=== PATIENT | female | born 1995 | race African-American/Black ===

== ENCOUNTER 2020-06-04 13:16 | Outpatient (CLI) | payer OTHER, SELFPAY ==
[~2020-06-04] VITALS: Ht 175.3 cm; Wt 110.0 kg
[2020-06-04 13:36] VITALS: BP 139/77
[2020-06-04] MEDS ORDERED: PRENTAB9 PO (13:55)
[2020-06-04] MEDS ORDERED: BETAMETHASONE SOLUSPAN 6MG/ML 5ML VIAL (J0702 PER 3MG) IM SCH (15:00)
--- NOTE | 2020-06-04 16:47 | REP ---
INDICATION: Complete placental previa COMPARISON: None. TECHNIQUE: Transabdominal obstetrical ultrasound with color Doppler evaluation. FINDINGS: Examination demonstrates a single live intrauterine in breech presentation. motion is identified by technologist. Placenta is noted posterior/right lateral and grade 3 with evidence for complete previa. Placenta includes 2 cystic areas measuring 4.1 x 1.7 x 3.1 cm and 5.0 x 1.0 x 5.0 cm which may represent placental lakes. Amniotic fluid volume is normal. BRAXTON measures 16.5 (8.3-24.5) Cervix measures 4.3 cm in length without funneling. Gestational age by LMP 33 weeks 0 days with LUI 07/23/2020. Gestational age by current measurements 31 weeks 3 days with LUI 08/03/2020. FHR equals 153 beats per minute. Estimated weight 1924 grams (44thpercentile). Biophysical profile score: 8/8 Anatomical assessment demonstrates normal structures including cranium, choroid plexus, cerebellum, facial features, facial profile, diaphragm, stomach, kidneys/bladder, spine and three-vessel cord. IMPRESSION: 1. Grade 3 placenta with complete previa and two anechoic collections suggesting venous lakes although placental hemorrhage cannot be excluded. 2. BRAXTON is normal. Biophysical profile score is 8/8. Estimated weight is normal. 3. Limited anatomical assessment without abnormality. <Electronically signed by Obed Loja > 06/04/20 [id number]
[2020-06-04 17:06] VITALS: BP 127/66
--- NOTE | 2020-06-04 17:26 | IPNPDOC ---
Text Note Date of Service The patient was seen on 06/04/20. NOTE 25 yo AT 33 WEEKS SEEN FOR [facility] NOTED PLACENTA PREVIA COMPLETE. HAPPENED YESTERDAY NO FURTHER BLEEDING TODAY . GOOD MOVEMENT. DENIES INTERCOURSE. PAST HISTORY: 2011 TERM FEMALE 3.8 KG [place] 2018 TERM MALE 3.8 KG [facility] LMP 10/17/2019 EDC 07/23 2020 EDC BY US 01/02/2021 11 WEEKS. ASSESSMENT: NO VAGINAL BLEEDING OR DISCHARGE SEEN NO CRAMPS . GOOD MOVEMENT. NST REACTIVE CATEGORY 1 STRIP NO DECELERATIONS ACCELERATIONS NOTED MODERATE VARIABILITY BASELINE NORMAL . ULTRASOUND PLACENTA POSTERIOR GRADE 3 COMPLETE PREVIA. 2 CYSTIC AREAS 4.1X1.7X3.1 AND 5.0X1.0X5.0 . BRAXTON 16.5 CM. CERVIX 4.3 CM NO FUNNELING. EGA 33 .0 WEEKS FHR 153 BPM. WEIGHT 1924 GRAMS . BPP 8/8. PLAN BETAMETHASONE X 2 DOSES BOOK PRIMARY CS AT 36-37 WEEKS PRECAUTIONS GIVEN. DISCHARGED UNDELIVERED. ACCOUNTANT BOOKKEEPER DECLINED REVIEWED OPTIONS AND RESULTS WITH AND PATIENT IN [place]. TOTAL TIME EVALUATION EXAMINATION 2 HOURS VS,Rigoberto, I+O VS, Jodie, I+O Vital Signs Date Time Temp Pulse Resp B/P (MAP) Pulse Ox O2 Delivery O2 Flow Rate FiO2 06/04/20 13:36 97.2 91 18 139/77 (97) Room Air Merlin Whitaker MD Jun 04, 2020 17:25
[2020-06-04] MEDS ORDERED: [UNRECOGNIZED DRUG - CODE] IM (17:28)
== END 2020-06-04 17:15 | disposition home or self-care (01) ==
LOC: M LDO 13:16
PROVIDERS: ATTEND Obstetrics & Gynecology
DX: O44.03 Complete placenta previa NOS or without hemorrhage, third trimester (principal); Z3A.33 33 weeks gestation of pregnancy
CPT/HCPCS: 59025; 76811; 76817; 76819; 76820; G0378; G0463; J0702

== ENCOUNTER 2020-06-05 15:39 | Outpatient (CLI) | payer OTHER, SELFPAY ==
[~2020-06-05] VITALS: Ht 175.3 cm; Wt 111.2 kg
[~2020-06-05 15:39] MED LIST: PRENTAB9 PO; [UNRECOGNIZED DRUG - CODE] IM
[2020-06-05] MEDS ORDERED: BETAMETHASONE SOLUSPAN 6MG/ML 5ML VIAL (J0702 PER 3MG) IM ONE (15:50)
[2020-06-05 15:55] VITALS: BP 118/66
[2020-07-07] MEDS ORDERED: MM S100C PO (09:39)
[2020-07-07] MEDS ORDERED: OMEP-218 PO (09:39)
--- NOTE | 2020-07-13 09:01 | IPNPDOC ---
Text Note Date of Service The patient was seen on 07/13/20. NOTE Patient presented on this date (05Jun2020) for a second dose of BTMZ. This was administered without difficulty. Patient was discharged home afterwards. LEXUS Goyal DO Jul 13, 2020 09:01
== END 2020-06-05 16:20 | disposition home or self-care (01) ==
LOC: M LDO 15:39
PROVIDERS: ATTEND Registered Nurse
DX: O44.03 Complete placenta previa NOS or without hemorrhage, third trimester (principal); Z3A.33 33 weeks gestation of pregnancy
CPT/HCPCS: 59025; 96372; G0378; G0463; J0702

== ENCOUNTER 2020-06-12 17:00 | Outpatient (CLI) | payer OTHER ==
[~2020-06-12] VITALS: Ht 175.3 cm; Wt 111.4 kg
[2020-06-12 17:43] VITALS: BP 107/54
[2020-06-12] MEDS ORDERED: OMEPRAZOLE 20 MG CAP PO ONE (18:00)
[2020-06-12] MEDS ORDERED: DOCUSATE SODIUM 100MG CAPSULE PO ONE (18:00)
--- NOTE | 2020-06-12 18:42 | IPNPDOC ---
Text Note Date of Service The patient was seen on 06/12/20. NOTE 25 yo at 34+1 weeks gestation presented to L&D with the complaint of significant heartburn and constipation. Patient does not speak [place]ian well. was available to translate by phone per her request. The patient has known complete placenta previa. Through her on the phone, she reports a couple day history of worsening abdominal pain where she feels like she has to have a bowel movement. She strains on the toilet but has been unable to go. In addition, she reports heartburn that is not being relieved by Tums. She has been drinking lots of water and this appears to make the heartburn worse. She denies any vaginal bleeding today at all. She also denies any contraction pain or leakage of fluid. She endorses lots of movement. Vitals - VSS, afebrile, normotensive, non tachycardic General - AAOX3, laying in bed, pleasant and conversant (through her via translation), NAD Abdomen - Gravid uterus, no fundal tenderness. FHR tracing - Cat I with moderate variability, +accels, no decels. No ctx on toco at all. Patient given prilosec and colace in triage with improvement in heartburn symptoms. No evidence of labor or infection. No bleeding reported at all. Suspect severe constipation and heartburn as cause of symptoms. Will prescribe aggressive bowel regimen for constipation and start daily prilosec for heartburn. She has a follow up appointment scheduled in our office on 15Jun2020. She is to return to care sooner for worsening pain, bleeding, leakage of fluid, decreased movement, or any other urgent concerns. All questions answered. able to translate al instructions. 30 minutes of patient care Rigoberto Hernandez, I+O Rigoberto CONTRERAS, I+O Vital Signs Date Time Temp Pulse Resp B/P (MAP) Pulse Ox O2 Delivery O2 Flow Rate FiO2 06/12/20 17:43 97.0 79 18 107/54 (71) 99 Room Air LEXUS PIERSON DO June 12, 2020 18:42
== END 2020-06-12 18:45 | disposition home or self-care (01) ==
LOC: M LDO 17:00
PROVIDERS: ATTEND Obstetrics & Gynecology
DX: O26.893 Other specified pregnancy related conditions, third trimester (principal); K59.00 Constipation, unspecified; R12 Heartburn; Z3A.34 34 weeks gestation of pregnancy; O99.613 Diseases of the digestive system complicating pregnancy, third trimester
CPT/HCPCS: 59025; G0378; G0463

== ENCOUNTER 2020-07-11 07:05 | Inpatient (IN) | payer OTHER ==
--- NOTE | 2020-07-06 12:55 | HPE ---
HISTORY AND PHYSICAL DATE OF ADMISSION: 07/11/2020 HISTORY OF PRESENT ILLNESS: This lady is a 25-year-old 3 para 2 at 38 weeks of gestation booked for a primary section because of noted total placenta previa. She has had intermittent spotting and bleeding throughout. No significant heavy bleeds. Good movement and denies any intercourse. PAST MEDICAL HISTORY: In 2011, a spontaneous vaginal delivery, term female, 3.8 kilos in [place], in 2019 spontaneous vaginal delivery, term male, 3.8 kilos in the [place]. Her LMP was 10/17/2019, her EDC is 07/23/2020 by an early dating ultrasound of January 03, 2020 at 11 weeks of gestation. Presently, she is having intermittent spotting and no cramping. She has good movement. She presently had a BPP which was 8 out of 8. The baby on last ultrasound was at the 44th percentile at 1924 grams with a heart rate of 153. The cervix was closed. No funneling and the placenta was noted to have two cystic areas 4.1 x 1.7 x 3.1 and 5.0 x 1.0 x 5.0. BRAXTON was within normal limits at 16.5. Her BMI was at 30. She had a bit of excessive weight gain in this . Lab work shows she is O positive, HIV negative, hepatitis negative RPR negative, rubella immune, Pap was normal, urine was negative, gonorrhea and chlamydia were negative. Her initial GTT is not available but she did have three hour GTT and as she passed at 1 hour at 75, at 2 hours at 117 and a 3 hour at 111. We discussed the risks and benefits of section including hemorrhage, infection, perforation, , remote possibility of blood transfusion, remote possibility of hysterectomy for life-threatening bleeding issues. PHYSICAL EXAMINATION The rest of the examination was unremarkable. Normocephalic, atraumatic. Neck with full range of motion. Pupils equal and reactive to light. Distal pulses are symmetric. No evidence of DVT, PE or superficial phlebitis. Chest is clear bilaterally at bases. No wheezes or rhonchi. No CVA tenderness. Abdomen is soft, four quadrant bowel sounds are noted. Her blood pressure is 122/66, respirations are 18, pulse is 89. Her weight presently is 254 pounds. She is 5'9". She has no rashes, lesions, pruritus, arthralgias or myalgias. No complaint of joint pain. IMPRESSION/PLAN: Patient again expressed an understanding of the reasoning for the section based on the fact that she cannot deliver vaginally through the placenta as that would be a life-threatening situation. All questions were answered. The discussion took place entirely in K[place]z with her present for translation if needed. We now await anesthesia in order to evaluate the patient and proceed to spinal, hemorrhage risk is 2. Two IV lines were in site and Neonatology was notified. Total discussion again was 30 minutes.
[2020-07-11] VITALS (8 sets, daily range): BP systolic 106–134; BP diastolic 57–85
[~2020-07-11] VITALS: Ht 172.7 cm; Wt 120.0 kg
[~2020-07-11 07:05] MED LIST changes: +ACETAMINOPHEN 650 MG SUPP PR ONE; +AZITHROMYCIN INJ 500 MG, VIAL MATE ADAPTER 1 EACH in NS 250 ML IV SCH; +BICITRA 30ML SOLN UDC PO ONE; +BUPIVACAINE HCL 0.25% 10ML VIAL SC ONE; +LR 1,000 ML IV ONE; +LR 1,000 ML IV SCH; +MM S100C PO; +OMEP-218 PO; +ceFAZolin SOD 2 GM in IV 1 EA IV ONE
[2020-07-11 08:00] LABS: HEMATOCRIT 40.1 % (36.0-47.0); HEMOGLOBIN 13.6 g/dl (12.0-15.5); MEAN CORPUSCULAR HEMOGLOBIN 33.4 pg (27.0-33.0); MEAN CORPUSCULAR HGB CONC 33.9 g/dl (32.0-36.5); MEAN CORPUSCULAR VOLUME 98.5 fl (80.0-96.0); PLATELET COUNT, AUTOMATED 127 10^3/uL (150-450); RED BLOOD COUNT 4.07 10^6/uL (4.00-5.40); WHITE BLOOD COUNT 8.1 10^3/uL (4.0-10.0)
[2020-07-11 09:12] LABS: APPEARANCE, URINE HAZY (CLEAR); BACTERIA, URINE AUTO 1+ (NEGATIVE); BILIRUBIN, URINE AUTO NEGATIVE (NEGATIVE); BLOOD, URINE BLOOD 1+ (NEGATIVE); COLOR, URINE YELLOW (YELLOW); GLUCOSE, URINE (UA) AUTO NEGATIVE (NEGATIVE); KETONE, URINE AUTO NEGATIVE (NEGATIVE); LEUKOCYTE ESTERASE, URINE AUTO NEGATIVE (NEGATIVE); MUCUS, URINE SMALL (NEGATIVE); NITRITE, URINE AUTO NEGATIVE (NEGATIVE); PROTEIN, URINE AUTO NEGATIVE (NEGATIVE); RBC, URINE AUTO 2 /HPF (0-3); SPECIFIC GRAVITY URINE AUTO 1.019 (1.002-1.035); SQUAMOUS EPITHELIAL CELL UR AU 3 /HPF (0-6); UROBILINOGEN, URINE AUTO 0.2 mg/dL (0.0-2.0); WBC, URINE AUTO 1 /HPF (0-3)
[2020-07-11] MEDS ORDERED: diphenhydrAMINE 50MG/ML VIAL (J1200) IV PRN (10:13)
[2020-07-11] MEDS ORDERED: NALBUPHINE HCL 10 MG/ML AMP (J2300) IV PRN (10:13)
[2020-07-11] MEDS ORDERED: NALOXONE INJ 0.4MG/1ML VIAL (J2310 PER 1MG) IV PRN ×2 (10:13)
[2020-07-11] MEDS ORDERED: METOCLOPRAMIDE INJ 10MG/2ML VIAL (J2765 PER 1) IV PRN ×2 (10:13→12:10)
[2020-07-11] MEDS ORDERED: ONDANSETRON 4MG/2ML VIAL IV PRN ×2 (10:13→12:10)
[2020-07-11] MEDS ORDERED: MORPHINE PRES-FREE INJ 10 MG/10 ML VIAL (J2274) As Ordered ONE (10:27)
[2020-07-11] MEDS ORDERED: OXYTOCIN INJ 10 UNITS/ML VIAL (J2590) As Ordered ONE (10:27)
[2020-07-11 11:10] LABS: CORD GAS ABE V -2.6; CORD GAS HCO3 V 24.7 MEQ/L; CORD GAS O2 SAT V 62.4 %; CORD GAS PCO2 V 52.4 mmHg; CORD GAS PH V 7.291 UNITS; CORD GAS PO2 V 26.5 mmHg; CORD GAS SBC V 21.4 MEQ/L; CORD GAS TCO2 V 26.3 MEQ/L
[2020-07-11 11:12] LABS: CORD GAS ABE A -0.9; CORD GAS HCO3 A 26.9 MEQ/L; CORD GAS O2 SAT A 63.5 %; CORD GAS PCO2 A 56.6 mmHg; CORD GAS PH A 7.295 UNITS; CORD GAS SBC A 22.8 MEQ/L; CORD GAS TCO2 A 28.7 MEQ/L
[2020-07-11 11:14] LABS: CORD GAS PO2 A 28.2 mmHg
[2020-07-11] MEDS ORDERED: MEASLES,MUMPS,RUBELLA VACCINE INJ (MMR-II) (90707) SC SCH (11:50)
[2020-07-11] MEDS ORDERED: OXYTOCIN DRIP 30 UNITS in IV 1 EA IV ONE (11:50)
[2020-07-11] MEDS ORDERED: IBUPROFEN 600MG TAB PO PRN (11:50)
[2020-07-11] MEDS ORDERED: MOM 30ML SUSPENSION UDC PO PRN (11:50)
[2020-07-11] MEDS ORDERED: PERCOCET 5MG/325MG TAB PO PRN ×2 (11:50→12:10)
[2020-07-11] MEDS ORDERED: OXYTOCIN INJ 10 UNITS/ML VIAL (J2590) IV ONE (11:50)
[2020-07-11] MEDS ORDERED: SIMETHICONE 80MG CHEW TAB PO PRN (11:50)
[2020-07-11] MEDS ORDERED: ACETAMINOPHEN TAB 650MG DOSE (2X325MG) PO PRN (11:50)
[2020-07-11] MEDS ORDERED: METHYLERGONOVINE MALEATE 0.2 MG TAB PO PRN (11:50)
[2020-07-11] MEDS ORDERED: RHOGAM 300 MCG (1500 IU) INJ (J2790) IM SCH (11:50)
[2020-07-11] MEDS ORDERED: ANUSOL HC CREAM 30GM TOP PRN (11:50)
[2020-07-11] MEDS ORDERED: DOCUSATE SODIUM 100MG CAPSULE PO PRN (11:50)
[2020-07-11] MEDS ORDERED: fentaNYL 100 MCG/2 ML INJECTION (J3010) As Ordered ONE (11:57)
[2020-07-11] MEDS ORDERED: LR 1,000 ML IV SCH (12:10)
[2020-07-11] MEDS ORDERED: KETOROLAC 30 MG/ML 1ML VIAL IV PRN (12:10)
[2020-07-11] MEDS ORDERED: fentaNYL 100 MCG/2 ML INJECTION (J3010) IV PRN (12:10)
[2020-07-11] MEDS ORDERED: OXYTOCIN 30 UNITS IN 0.9% NaCl 500ML IV BAG (J2590) As Ordered ONE (12:23)
--- NOTE | 2020-07-11 13:27 | RO ---
OPERATIVE NOTE DATE OF OPERATION: 07/11/2020 PREOPERATIVE DIAGNOSIS: Complete placenta previa. POSTOPERATIVE DIAGNOSIS: Complete placenta previa. OPERATION PROPOSED: Primary section. OPERATION PERFORMED: Primary section. SURGEON: Merlin Whitaker MD. ADVANCED MANAGER: Dr. Babb for extraction, retraction, and visualization without which the procedure could not be completed. ANESTHESIA: Spinal plus local anesthetic for intraperitoneal procedures. ESTIMATED BLOOD LOSS: 1200 mL. DESCRIPTION OF PROCEDURE: Under spinal anesthesia, prepped and draped in the supine position. Time out was performed. Acetaminophen suppository 1300 mg per rectum. Antibiotics appropriately one hour preoperatively and sequentials in place. A Pfannenstiel incision was made through the previous one passing through abdominal layers and securing hemostasis. Opening the peritoneal cavity, we noticed huge varicosities in the lower anterior segment which were bulging out from the placenta, vertex presenting. We put a Mobius in and then a low transverse into the uterus. ARM draining clear likely delivered. A live male with forceps extraction because of the extreme keloidness throughout the entire skin, fascia, and peritoneum. A live female infant weighing 6 pounds 14 ounces, 3110 grams, Apgars of 5 and 9 at one and five minutes respectively. Arterial and venous pH was performed. Arterial pH 7.29, base excess -10.9 . Cord around the neck x1 which was loose. The placenta was manually removed, and it was complete over the internal os of the cervix. There was a large dunlap there present and also calcification and yellow extension of serous fluid in the lower segment. She had a previous bleed several weeks ago. Examining the lower segment and the os appeared to be no evidence of active bleeding. The lower segment was oversewn in the usual fashion with a locking stitch for the first layer and imbricating the second layer. With instrument and pad counts correct, both ovaries and tubes appeared to be normal. The Mobius was removed. The abdomen was then closed in a running stitch for the peritoneum, same for the fascia, interrupted for subcu. We did irrigate prior to closing the subcu and skin stitch with a Monocryl 4-0. A Mepore dressing was placed. Clots were expelled from the uterus, and the patient was taken to recovery in good condition.
[2020-07-11] MEDS: KETOROLAC 30 MG/ML 1ML VIAL IV SCH ×2 (13:31→20:32)
[2020-07-11] MEDS: LR 1,000 ML IV SCH ×2 (16:34→20:33)
[2020-07-12 02:00] VITALS: BP 131/74
[2020-07-12] MEDS: KETOROLAC 30 MG/ML 1ML VIAL IV SCH ×2 (02:08→07:46)
[2020-07-12] MEDS: LR 1,000 ML IV SCH (03:50)
[2020-07-12 06:00] VITALS: BP 119/62
[2020-07-12] MEDS ORDERED: SLF 3 ML SYR IV PRN (07:30)
[2020-07-12] MEDS: PRENATAL VITAMINS CHEWABLE TABLET PO SCH (07:46)
[2020-07-12 07:52] LABS: HEMATOCRIT 35.8 % (36.0-47.0); HEMOGLOBIN 11.8 g/dl (12.0-15.5); MEAN CORPUSCULAR HEMOGLOBIN 33.2 pg (27.0-33.0); MEAN CORPUSCULAR VOLUME 100.8 fl (80.0-96.0); PLATELET COUNT, AUTOMATED 116 10^3/uL (150-450); RED BLOOD COUNT 3.55 10^6/uL (4.00-5.40); WHITE BLOOD COUNT 8.7 10^3/uL (4.0-10.0)
[2020-07-12 10:00] VITALS: BP 126/58
[2020-07-12 14:00] VITALS: BP 136/70
[2020-07-12] MEDS: SLF 3 ML SYR IV SCH ×2 (15:06→21:06)
[2020-07-12] MEDS: IBUPROFEN 800 MG TAB PO SCH ×2 (15:09→23:32)
[2020-07-12 17:59] VITALS: BP 142/99
[2020-07-12 22:00] VITALS: BP 122/60
[2020-07-13 02:00] VITALS: BP 128/69
[2020-07-13] MEDS: SLF 3 ML SYR IV SCH (05:13)
[2020-07-13 06:00] VITALS: BP 129/73
[2020-07-13] MEDS ORDERED: IBUP80TA PO (07:45)
--- NOTE | 2020-07-13 07:56 | OBDS ---
[facility] Obstetrical Discharge Sum. Obstetrical Discharge Summary Date: Jul 13, 2020 Time: 10:00 VDRL: Non-Reactive Rh: Positive Rubella: Immune Infant Sex: Female Anesthesia: Regional Anesthesia A/P, Post Course List any complications Admission diagnosis: Term Intrauterine Discharge diagnosis: Same As Above, delivered via Low Transverse Section Condition at Discharge: Stable Discharge Instructions: Home Activity: As tolerated Diet: Regular Medications: - Motrin 800mg by mouth every 8-hours, as needed for pain - Tylenol 650mg by mouth every 8-hours, as needed for pain - Oxycodone 5mg by mouth every 6-hours, as needed for severe pain - Vitamins by mouth everyday with food Follow-up: - 2-week incision check at the [facility] - 6-week check at the [facility] Other: None SUBJECT: Mrs. Elsi Salas is a 25-year-old 3 now Para 3-0-0-3 who is PPD#2 status post uncomplicated, primary low transverse caesarean section productive of a viable female on Friday, 11 July 2020. Of note, the patient underwent the PLTCS secondary to placenta previa. This morning, Mrs. Salas reports that her pain is well controlled; she is ambulating without difficulty; is voiding spontaneously; is passing stool/flatus; and is tolerating a regular diet. Her lochia is reported as minimal. She is breast feeding without issues and is interested in the Nexplanon versus Mirena IUD for contraception. Will discuss at her 6-week visit. OBJECTIVE: VITAL SIGNS: Within normal limits, afebrile. General: Alert and oriented times three. Lungs: Breath sounds clear to auscultation. Heart: Regular rate and rhythm, no murmurs, rubs or gallops. Abdomen: Pressure dressing was taken down; Incision was c/d/i covered with a bandage; Fundus firm at U-2. ASSESSMENT: Mrs. Salas is a 25-year-old 3 now Para 3-0-0-3 who is status post uncomplicated, primary low transverse section who is doing well on day 2. Vitals within normal limits, afebrile, hemodynamically stable with no evidence of infection. PLAN: 1. Oxycodone, Tylenol and Motrin for pain. 2. Encourage breast feeding and ambulation. 3. Discharge to home today (, 13 July 2020) 4. Incision Check in 2 weeks in clinic 5. Routine PP visit in 6 weeks in clinic. 6. Will discuss contraception methods at 6-week PP visit. Tommy Fox., Ph.D. [facility] RIC DUGAN M.D. Jul 13, 2020 07:55
[2020-07-13] MEDS: PRENATAL VITAMINS CHEWABLE TABLET PO SCH (08:07)
[2020-07-13] MEDS: IBUPROFEN 800 MG TAB PO SCH (08:08)
[2020-07-13] MEDS ORDERED: ACET1TAB55 PO (08:49)
[2020-07-13] MEDS ORDERED: MI-A80CH PO (08:51)
== END 2020-07-13 11:00 | disposition home or self-care (01) | DRG 773 ==
LOC: M LDI 07:05 → M OBS 13:01
PROVIDERS: ADMIT Obstetrics & Gynecology; ATTEND Obstetrics & Gynecology
PROC: 10D00Z1 Extraction of Products of Conception, Low, Open Approach (ICD-10-PCS; principal; 2020-07-11 09:30)
DX: O44.03 Complete placenta previa NOS or without hemorrhage, third trimester (principal); Z3A.38 38 weeks gestation of pregnancy; O69.81X0 Labor and delivery complicated by cord around neck, without compression, not applicable or unspecified; Z37.0 Single live birth

== ENCOUNTER 2020-07-14 03:32 | Emergency (ER) | payer OTHER ==
[~2020-07-14] VITALS: Ht 172.7 cm; Wt 120.5 kg
[~2020-07-14 03:32] MED LIST changes: +ACET1TAB55 PO; -ACETAMINOPHEN 650 MG SUPP PR ONE; -AZITHROMYCIN INJ 500 MG, VIAL MATE ADAPTER 1 EACH in NS 250 ML IV SCH; -BICITRA 30ML SOLN UDC PO ONE; -BUPIVACAINE HCL 0.25% 10ML VIAL SC ONE; +IBUP80TA PO; -LR 1,000 ML IV ONE; -LR 1,000 ML IV SCH; +MI-A80CH PO; -ceFAZolin SOD 2 GM in IV 1 EA IV ONE
[2020-07-14 04:41] LABS: HEMATOCRIT 33.9 % (36.0-47.0); HEMOGLOBIN 11.4 g/dl (12.0-15.5); MEAN CORPUSCULAR HEMOGLOBIN 33.4 pg (27.0-33.0); MEAN CORPUSCULAR HGB CONC 33.6 g/dl (32.0-36.5); MEAN CORPUSCULAR VOLUME 99.4 fl (80.0-96.0); PLATELET COUNT, AUTOMATED 120 10^3/uL (150-450); RED BLOOD COUNT 3.41 10^6/uL (4.00-5.40); WHITE BLOOD COUNT 8.9 10^3/uL (4.0-10.0)
[2020-07-14 05:02] LABS: ALBUMIN 2.5 GM/DL (3.2-5.2); ALT/SGPT 26 U/L (12-78); BILIRUBIN,DIRECT < 0.1 MG/DL (0.0-0.2); BILIRUBIN,TOTAL 0.3 MG/DL (0.2-1.0); BLOOD UREA NITROGEN 8 MG/DL (7-18); CALCIUM LEVEL 8.8 MG/DL (8.5-10.1); CARBON DIOXIDE LEVEL 24 MEQ/L (21-32); CHLORIDE LEVEL 109 MEQ/L (98-107); CREATININE FOR GFR 0.43 MG/DL (0.55-1.30); GLOMERULAR FILTRATION RATE > 60.0 (>60); GLUCOSE, FASTING 79 MG/DL (70-100); LIPASE 75 U/L (73-393); POTASSIUM SERUM 3.7 MEQ/L (3.5-5.1); SODIUM LEVEL 140 MEQ/L (136-145); TOTAL PROTEIN 6.2 GM/DL (6.4-8.2)
[2020-07-14 05:03] LABS: EOSINOPHILS 2 % (0-3); LYMPHOCYTES 18 % (16-44); MONOCYTES 6 % (0-5); NEUTROPHILS 74 % (28-66); PLATELET ESTIMATE NORMAL (NORMAL)
[2020-07-14] MEDS ORDERED: MORPHINE 4 MG/ML 1ML VIAL/SYRINGE (J2270) IV PRN (05:45)
[2020-07-14] MEDS ORDERED: ONDANSETRON 4MG/2ML VIAL IV ONE (05:45)
[2020-07-14] MEDS ORDERED: ISOVUE-370 76% 100ML VIAL As Ordered ONE (05:50)
--- NOTE | 2020-07-14 06:33 | REPVR ---
PROCEDURE INFORMATION: Exam: CT Abdomen and Pelvis with Contrast Exam date and time: 07/14/20 (6:01am) Age: 25 years old Clinical indication: Generalized abdominal pain. Prior surgery. Surgery date: 3-7 days post-operative. Surgery type: (on 07/11/20). TECHNIQUE: Imaging protocol: Computed tomography of the abdomen and pelvis with contrast. Radiation optimization: All CT scans at this facility use at least one of these dose optimization techniques: automated exposure control; mA and/or kV adjustment per patient size (includes targeted exams where dose is matched to clinical indication); or iterative reconstruction. Contrast material: Isovue 370 Contrast volume: 100 ml Contrast route: IV COMPARISON: US OB of 06/04/20 FINDINGS: Liver: Normal. No solid mass. Gallbladder and bile ducts: Normal. No calcified stones. No ductal dilatation. Pancreas: Normal. No ductal dilatation. Spleen: Prominent spleen. Adrenal glands: Normal. No mass. Kidneys and ureters: Normal. No hydronephrosis. Stomach and bowel: Unremarkable. No bowel obstruction. No mucosal thickening. Appendix: No evidence of appendicitis. Intraperitoneal space: Unremarkable. No free air. No significant fluid collection. Vasculature: Unremarkable. No abdominal aortic aneurysm. Lymph nodes: Unremarkable. No enlarged lymph nodes. Urinary bladder: Unremarkable as visualized. Reproductive: Enlarged post- uterus (approx. 14 x 13 x 14 cm size), with heterogeneous texture. Bones/joints: Unremarkable. No acute fracture. Soft tissues: Obese patient. IMPRESSION: Enlarged post- uterus, with heterogeneous texture. No drainable collections are seen. No definite abscess. Generally mild post-operative lower abdominal-pelvic wall soft tissue changes. Some soft tissue air bubbles noted. Electronically signed by: Macey Marie On 07/14/2020 06:32:42 AM
[2020-07-14] MEDS ORDERED: KETOROLAC 30 MG/ML 1ML VIAL IV ONE (06:50)
[2020-07-14 07:17] VITALS: BP 134/78
--- NOTE | 2020-07-15 07:31 | ED PDOC ---
Post-Departure Follow-Up ct abd/p faxed to [facility] Jessica Soto MD Jul 15, 2020 07:31
== END 2020-07-14 07:32 | disposition home or self-care (01) ==
LOC: M ED 03:32
DX: G89.18 Other acute postprocedural pain (principal); R10.9 Unspecified abdominal pain; R11.2 Nausea with vomiting, unspecified; Z79.899 Other long term (current) drug therapy
CPT/HCPCS: 74177; 80048; 80076; 81001; 83690; 85025; 87086; 93041; 96374; 96375; 99285; J1885; J2270; J2405; Q9967

== ENCOUNTER 2021-11-20 07:06 | Outpatient (CLI) | payer OTHER ==
[~2021-11-20] VITALS: Ht 165.1 cm; Wt 114.1 kg
[2021-11-20] VITALS (18 sets, daily range): BP systolic 110–183; BP diastolic 52–82
[~2021-11-20 07:06] MED LIST changes: +OMEP-173 PO; -OMEP-218 PO
[2021-11-20] MEDS ORDERED: HOME MED LIST COMPLETE! XX SCH (07:45)
[2021-11-20] MEDS ORDERED: MAG Sulf (OBGYN) 20GM/500ML 20,000 MG in IV 1 EA IV SCH (08:15)
[2021-11-20] MEDS ORDERED: MAGNESIUM *L&D* 4GM/100ML BAG (40MG/ML) IV ONE (08:15)
[2021-11-20] MEDS: LR 1,000 ML IV SCH ×2 (08:43→21:10)
[2021-11-20] MEDS ORDERED: CALCIUM GLUCONATE 1,000 MG in D5W MINI-BAG PLUS 100 ML IV PRN (08:50)
[2021-11-20] MEDS ORDERED: MAG Sulf (L&D) 4 GM/100 ML 4 GM in IV 1 EA IV ONE (08:55)
[2021-11-20] MEDS: BETAMETHASONE SOLUSPAN 6MG/ML 5ML VIAL (J0702 PER 3MG) IM SCH (09:00)
[2021-11-20] MEDS: MAG Sulf (OBGYN) 20GM/500ML 20,000 MG in IV 1 EA IV SCH ×2 (09:30→19:27)
[2021-11-20 09:45] LABS: HEMATOCRIT 31.7 % (36.0-47.0); HEMOGLOBIN 10.6 g/dl (12.0-15.5); MEAN CORPUSCULAR HEMOGLOBIN 32.3 pg (27.0-33.0); MEAN CORPUSCULAR HGB CONC 33.4 g/dl (32.0-36.5); MEAN CORPUSCULAR VOLUME 96.6 fl (80.0-96.0); PLATELET COUNT, AUTOMATED 133 10^3/uL (150-450); RED BLOOD COUNT 3.28 10^6/uL (4.00-5.40); WHITE BLOOD COUNT 7.7 10^3/uL (4.0-10.0)
[2021-11-20 09:55] LABS: INR 0.91; PROTHROMBIN TIME 12.5 SECONDS (12.5-14.5)
[2021-11-20 10:08] LABS: LYMPHOCYTES 21 % (16-44); MONOCYTES 3 % (0-5); NEUTROPHILS 76 % (28-66)
[2021-11-20 10:10] LABS: ANISOCYTOSIS 1+; GIANT PLATELETS 1+; PLATELET ESTIMATE NORMAL (NORMAL)
[2021-11-21 00:07] VITALS: BP 115/58
[2021-11-21 02:41] VITALS: BP 108/57
[2021-11-21 05:04] VITALS: BP 103/57
[2021-11-21 06:17] VITALS: BP 108/54
[2021-11-21 07:30] VITALS: BP 114/77
[2021-11-21] MEDS: BETAMETHASONE SOLUSPAN 6MG/ML 5ML VIAL (J0702 PER 3MG) IM SCH (09:06)
== END 2021-11-21 10:23 | disposition home or self-care (01) ==
LOC: M LDO 07:06
PROVIDERS: ATTEND Registered Nurse
DX: O44.13 Complete placenta previa with hemorrhage, third trimester (principal); Z3A.29 29 weeks gestation of pregnancy; O34.219 Maternal care for unspecified type scar from previous cesarean delivery
CPT/HCPCS: 36415; 59025; 76815; 85025; 85384; 85610; 86850; 86900; 86901; 86920; 87081; 87635; 96360; 96361; 96372; G0378; G0463; J0702; J3475

== ENCOUNTER 2022-01-05 22:46 | Emergency (ER) | payer OTHER ==
[~2022-01-05] VITALS: Ht 165.1 cm; Wt 107.1 kg
[2022-01-06] MEDS ORDERED: diphenhydrAMINE CREAM 30GM TOP STA (00:01)
[2022-01-06] MEDS ORDERED: BENA2CRE3 TOP (00:04)
[2022-01-06] MEDS ORDERED: HYDROCORTISONE 1% CREAM 30 GM TOP ONE (00:05)
[2022-01-06 00:11] VITALS: BP 127/85
[2022-01-06] MEDS ORDERED: ANEC4CRE3 TOP (18:52)
[2022-01-07] MEDS ORDERED: BENA25CA4 PO (08:58)
== END 2022-01-06 00:35 | disposition home or self-care (01) ==
LOC: M ED 22:46
DX: L29.9 Pruritus, unspecified (principal); Z48.816 Encounter for surgical aftercare following surgery on the genitourinary system; Z79.899 Other long term (current) drug therapy

== ENCOUNTER 2022-01-06 16:00 | Emergency (ER) | payer OTHER ==
[~2022-01-06] VITALS: Ht 165.1 cm; Wt 105.6 kg
[~2022-01-06 16:00] MED LIST changes: +BENA2CRE3 TOP
[2022-01-06] MEDS ORDERED: HYDROCORTISONE 1% CREAM 30 GM TOP ONE (17:20)
[2022-01-06] MEDS ORDERED: LIDOCAINE 1% MDV 20ML VIAL SC ONE (17:35)
[2022-01-06] MEDS ORDERED: EMLA CREAM 5GM TUBE (LIDOCAINE/PRILOCAINE) TOP ONE (17:35)
[2022-01-06] MEDS ORDERED: BUPIVACAINE HCL 0.5% 30ML VIAL SC ONE (17:50)
[2022-01-06 17:57] LABS: BASO % 0.7 % (0.0-1.0); EOS # 0.2 10^3/uL (0.0-0.5); EOS % 2.6 % (0.0-3.0); HEMATOCRIT 30.3 % (36.0-47.0); HEMOGLOBIN 9.9 g/dl (12.0-15.5); LYMPH # 1.6 10^3/uL (1.5-5.0); LYMPH % 27.7 % (24.0-44.0); MEAN CORPUSCULAR HEMOGLOBIN 31.3 pg (27.0-33.0); MEAN CORPUSCULAR HGB CONC 32.7 g/dl (32.0-36.5); MEAN CORPUSCULAR VOLUME 95.9 fl (80.0-96.0); MONO # 0.4 10^3/uL (0.0-0.8); MONO % 7.2 % (2.0-8.0); NEUTROPHILS # 3.6 10^3/uL (1.5-8.5); NEUTROPHILS % 61.6 % (36.0-66.0); PLATELET COUNT, AUTOMATED 338 10^3/uL (150-450); RED BLOOD COUNT 3.16 10^6/uL (4.00-5.40); WHITE BLOOD COUNT 5.8 10^3/uL (4.0-10.0)
[2022-01-06] MEDS ORDERED: ANEC4CRE3 TOP (18:52)
[2022-01-06 19:01] VITALS: BP 137/93
[2022-01-07] MEDS ORDERED: BENA25CA4 PO (08:58)
== END 2022-01-06 19:02 | disposition home or self-care (01) ==
LOC: M ED 16:00
DX: L29.9 Pruritus, unspecified (principal); Z48.89 Encounter for other specified surgical aftercare

== ENCOUNTER 2022-01-07 06:53 | Emergency (ER) | payer OTHER ==
[~2022-01-07] VITALS: Ht 165.1 cm; Wt 107.0 kg
[~2022-01-07 06:53] MED LIST changes: +ANEC4CRE3 TOP
[2022-01-07] MEDS ORDERED: diphenhydrAMINE 50MG CAP PO ONE (08:55)
[2022-01-07] MEDS ORDERED: BENA25CA4 PO (08:58)
[2022-01-07 09:40] VITALS: BP 115/68
== END 2022-01-07 09:41 | disposition home or self-care (01) ==
LOC: M ED 06:53
DX: T78.40XA Allergy, unspecified, initial encounter (principal); L29.9 Pruritus, unspecified

== ENCOUNTER 2023-04-13 20:02 | Emergency (ER) | payer OTHER ==
[~2023-04-13] VITALS: Ht 167.6 cm; Wt 88.0 kg
[~2023-04-13 20:02] MED LIST changes: +BENA25CA4 PO
[2023-04-13 21:31] LABS: HEMATOCRIT 38.3 % (36.0-47.0); HEMOGLOBIN 12.8 g/dl (12.0-15.5); MEAN CORPUSCULAR HEMOGLOBIN 31.4 pg (27.0-33.0); MEAN CORPUSCULAR HGB CONC 33.4 g/dl (32.0-36.5); MEAN CORPUSCULAR VOLUME 94.1 fl (80.0-96.0); PLATELET COUNT, AUTOMATED 212 10^3/uL (150-450); RED BLOOD COUNT 4.07 10^6/uL (4.00-5.40); WHITE BLOOD COUNT 4.6 10^3/uL (4.0-10.0)
[2023-04-13 21:53] LABS: CK-MB VALUE MASS < 1.0 NG/ML (<3.6)
[2023-04-13 21:55] LABS: ALBUMIN 3.4 G/DL (3.2-5.2); ALKALINE PHOSPHATASE 69 U/L (46-116); ALT/SGPT 11 U/L (7.0-40); AST/SGOT 12 U/L (<34); BILIRUBIN,TOTAL 0.2 MG/DL (0.3-1.2); BLOOD UREA NITROGEN 15 MG/DL (9-23); CALCIUM LEVEL 8.3 MG/DL (8.5-10.1); CARBON DIOXIDE LEVEL 28 MMOL/L (20-31); CHLORIDE LEVEL 108 MMOL/L (98-107); CREATININE FOR GFR 0.53 MG/DL (0.55-1.30); GLOMERULAR FILTRATION RATE > 60.0 (>60); GLUCOSE, FASTING 99 MG/DL (60-100); POTASSIUM SERUM 3.6 MMOL/L (3.5-5.1); SODIUM LEVEL 140 MMOL/L (136-145); TOTAL PROTEIN 7.1 G/DL (5.7-8.2)
[2023-04-13 22:00] LABS: CPK CREATINE PHOSPHOKINASE 85 U/L (34-145); MB/CK RELATIVE INDEX 1.17 (< OR =4)
[2023-04-13 22:14] LABS: ATYPICAL LYMPH 2 % (0-5); BASOPHILS 3 % (0-1); EOSINOPHILS 2 % (0-3); LYMPHOCYTES 40 % (16-44); MONOCYTES 2 % (0-5); NEUTROPHILS 51 % (28-66); PLATELET ESTIMATE NORMAL (NORMAL)
[2023-04-13 22:44] LABS: MAGNESIUM LEVEL 1.9 MG/DL (1.8-2.4)
[2023-04-13 22:48] LABS: FREE T4 0.92 NG/DL (0.89-1.76); THYROID STIMULATING HORMONE 1.489 uIU/ML (0.55-4.78)
[2023-04-13 23:00] VITALS: BP 115/72; TEMP 97.4; O2SAT 99
[2023-04-13] MEDS ORDERED: HOLTER MONITOR XX (23:03)
[2023-04-13 23:34] LABS: CK-MB VALUE MASS < 1.0 NG/ML (<3.6); CPK CREATINE PHOSPHOKINASE 83 U/L (34-145)
== END 2023-04-13 23:17 | disposition home or self-care (01) ==
LOC: EDBD 20:02 → M ED 20:02
DX: R00.2 Palpitations (principal); F10.10 Alcohol abuse, uncomplicated; F17.290 Nicotine dependence, other tobacco product, uncomplicated